=== PATIENT | female | born 1995 | race American Indian/Alaskan Native ===

== ENCOUNTER 2016-03-31 18:26 | Emergency (ER) | payer MEDICAID ==
--- NOTE | 2016-03-31 19:59 | Emergency Department Report ---
Chief Complaint: Vaginal Bleeding Stated Complaint: VAG BLOOD CLOTTING Time Seen by Provider: 03/31/16 19:57 - HPI History of Present Illness: Patient here complaining of lower abdominal pain and brown vaginal discharge times one week. Patient reports that she saw her blood clot came. She says she has an appointment set up to see [facility]. Patient reports that abdominal pain is 9 out of 10. She reports that she is 7 weeks and 3 days . Denies any urinary burning frequency or urgency. Denies any fever or chills. - ROS Review of Systems: All systems are negative unless stated in HPI above. - Exam Vital Signs: Vital Signs 03/31/16 18:34 Temperature 99.0 F Pulse Rate 65 Respiratory 18 Rate Blood Pressure 129/71 O2 Sat by Pulse 100 Oximetry Physical Exam: General: This is a 21-year-old female well-nourished well-developed in no acute distress Abdomen: Mild tenderness to palpate the pelvic area. No guarding or rebound tenderness and positive bowel sounds. CV: S1, S2. Regular rate and rhythm MSE screening note: Focused history and physical exam performed. Due to findings the following was ordered:see mdm ED Medical Decision Making - Medical Decision Making Medical decision making: Patient seen by provider in triage area. Appropriate protocol activated and patient to main ED to be seen by physician. ED Disposition for MSE Condition: Stable
[2016-03-31 21:10] LABS: Basophils % (Auto) 0.3 % (0.0-1.8); Eosinophils % (Auto) 1.7 % (0.0-4.3); Hematocrit 37.4 % (30.3-42.9); Hemoglobin 11.8 gm/dl (10.1-14.3); Mean Corpuscular HGB Conc 32 % (30-34); Mean Corpuscular Hemoglobin 27 pg (28-32); Mean Corpuscular Volume 86 fl (79-97); Platelet Count 283 K/mm3 (140-440); Red Blood Count 4.36 M/mm3 (3.65-5.03); Red Cell Distribution Width 17.7 % (13.2-15.2); White Blood Count 10.8 K/mm3 (4.5-11.0)
[2016-03-31 22:58] LABS: Bilirubin,Urine NEG (Negative); Blood,Urine LG (Negative); Ketones,Urine NEG (Negative); Leukocyte Esterase,Urine TR (Negative); Mucus,Urine FEW /HPF; Nitrite,Urine NEG (Negative); Protein,Urine <15 mg/dL mg/dL (Negative); Urobilinogen,Urine < 2.0 mg/dL (<2.0)
--- NOTE | 2016-04-01 00:11 | Ultrasound Report ---
FINAL REPORT PROCEDURE: First trimester obstetric ultrasound. TECHNIQUE: Real-time transabdominal and transvaginal sonography of the uterus, placenta, amniotic fluid, adnexa, and fetus was performed with image documentation. Measurements were obtained to determine age/size. M-mode Doppler was used to document heartbeat. CPT 07469 and 46609 HISTORY: . Bleeding and abdominal pain. COMPARISON: No prior studies are available for comparison. FINDINGS: LMP: 02/09/2016. Gestational age (LMP): 7 weeks 2 days. EDC: 11/15/2016. CRL: No pole identified. Yolk Sac: Slightly enlarged. 5.2 millimeters. Embryonic Cardiac Activity: No cardiac activity detected. Gestational Sac: 3 x 3 x 3 millimeter subchorionic bleed. Mean sac diameter 11.7 millimeters, 6 weeks 0 days. Amniotic fluid: Normal. Cervix: Normal. Right Ovary: 3.1 x 1.7 x 2.9 centimeters. 1.5 centimeter complex lesion. Normal flow. Left Ovary: 1.9 x 1.6 x 1.7 centimeters. Normal flow. Uterus: 8.1 x 4.2 x 4.5 centimeters. EDC: 11/24/2016. IMPRESSION: Possible small intrauterine gestational sac. Yolk sac appears mildly enlarged. No pole or cardiac activity detected at this time. By measurements of mean sac diameter 6 weeks 0 days with EDC of 11/24/2016. Consider this could be a very early intrauterine gestation before pole and cardiac activity detected. Small subchorionic bleed. Complex right ovarian/adnexal lesion likely complex cyst. Without definite intrauterine , although unlikely difficult to completely exclude ectopic. Consider clinical correlation, correlation with beta HCG, and short-term followup ultrasound.
--- NOTE | 2016-04-01 03:34 | Emergency Department Report ---
ED Female HPI - General Chief complaint: Vaginal Bleeding Stated complaint: VAG BLOOD CLOTTING Time Seen by Provider: 03/31/16 19:57 Source: patient, RN notes reviewed Mode of arrival: Ambulatory Limitations: No Limitations - History of Present Illness Initial comments: This is a 21-year-old female, previously unknown to me. She is 1, para 0. Last menstrual period is February 08. She is going to be following at [facility] [employer]. She has not followed up thus far. The patient presents to the ER with vaginal bleeding. The patient reported that at 6:00 PM yesterday, she was going to the bathroom, passed some tissue. She has had mild vaginal spotting and vaginal cramping. No nausea or vomiting. No chest pain or shortness of breath. No irritative or obstructive urinary symptoms. Symptoms have no exacerbating or relieving factors. cramping does not radiate anywhere. MD Complaint: vaginal bleeding, pelvic pain -: Sudden Location: suprapubic Severity: mild Quality: cramping Consistency: intermittent Improves with: none Worsens with: none Associated Symptoms: vaginal bleeding. denies: vaginal discharge, abdominal pain, nausea/vomiting, fever/chills, headaches, loss of appetite, dysuria, shortness of breath, syncope, weakness - Related Data Sexually active: Yes Allergies Allergy/AdvReac Type Severity Reaction Status Date / Time No Known Allergies Allergy Unverified 03/31/16 18:34 ED Review of Systems ROS: Stated complaint: VAG BLOOD CLOTTING Other details as noted in HPI Constitutional: denies: fever, malaise Eyes: denies: vision change ENT: denies: epistaxis Respiratory: denies: cough Cardiovascular: denies: chest pain Gastrointestinal: denies: nausea, vomiting Genitourinary: abnormal menses Musculoskeletal: denies: back pain, joint swelling, arthralgia Skin: denies: lesions Neurological: denies: headache, weakness, paresthesias Psychiatric: denies: anxiety, depression ED Physical Exam - General Limitations: No Limitations General appearance: alert, in no apparent distress - Head Head exam: Present: atraumatic, normocephalic - Eye Eye exam: Present: normal appearance, EOMI. Absent: nystagmus - ENT ENT exam: Present: normal exam, normal orophraynx, mucous membranes moist, normal external ear exam - Neck Neck exam: Present: normal inspection, full ROM. Absent: tenderness, meningismus - Respiratory Respiratory exam: Present: normal lung sounds bilaterally. Absent: respiratory distress, wheezes, rales, rhonchi, stridor, decreased breath sounds - Cardiovascular Cardiovascular Exam: Present: regular rate, normal rhythm, normal heart sounds. Absent: bradycardia, tachycardia, irregular rhythm, systolic murmur, diastolic murmur, rubs, gallop - GI/Abdominal GI/Abdominal exam: Present: soft, normal bowel sounds. Absent: distended, tenderness, guarding, rebound, rigid, pulsatile mass - External exam: Present: normal external exam Speculum exam: Present: normal speculum exam, vaginal bleeding Bi-manual exam: Present: normal bi-manual exam, other (escorted by nurse HOSSEIN ROSALES during the gynecologic examination). Absent: cervical motion tendernes, adnexal tenderness, adnexal mass - Extremities Exam Extremities exam: Present: normal inspection, full ROM, normal capillary refill. Absent: tenderness, pedal edema, joint swelling, calf tenderness, other - Back Exam Back exam: Present: normal inspection - Neurological Exam Neurological exam: Present: alert, oriented X3, normal gait, other (Extraocular movements intact. Tongue midline. No facial droop. Facial sensation intact to light touch in the V1, V2, V3 distribution bilaterally. 5 and 5 strength in 4 extremities.. Sensation is intact to light touch in 4 extremities.). Absent : motor sensory deficit - Psychiatric Psychiatric exam: Present: normal affect, normal mood - Skin Skin exam: Present: warm, dry, intact, normal color. Absent: rash ED Course Vital Signs 03/31/16 04/01/16 04/01/16 18:34 :17 03:49 Temperature 99.0 F 98.4 F Pulse Rate 65 74 Respiratory 18 14 18 Rate Blood Pressure 129/71 Blood Pressure 126/90 [Right] O2 Sat by Pulse 100 100 99 Oximetry 04/01/16 03:58 Temperature 98.4 F Pulse Rate 89 Respiratory 16 Rate Blood Pressure Blood Pressure 111/69 [Right] O2 Sat by Pulse 98 Oximetry - Reevaluation(s) Reevaluation #1: 04/01/16 04:22 Differential diagnosis: Miscarriage, ectopic , threatened miscarriage Assessment and plan: 21-year-old female with vaginal bleeding, positive quantitative hCG, report of passing probable tissue prior to arrival at the ER. She is afebrile with reassuring vital signs, and has a benign gynecologic examination. A transvaginal ultrasound demonstrates a slightly enlarged yolk sac, with no cardiac activity, a small subchorionic bleed, bilateral normal ovaries. The radiologist felt that the patient most likely had a small intrauterine gestational sac with a yolk sac appeared mildly enlarged. No cardiac activity was noted. I highly suspect that the patient is having a miscarriage. She is afebrile with reassuring vital signs, and clinically appears very well looking. She is instructed to avoid heavy lifting, avoid strenuous physical activity, and to return in 48 hours for repeat quantitative hCG. Return precautions are extensively reviewed. ED Medical Decision Making - Lab Data Result diagrams: 03/31/16 20:48 Vital Signs 03/31/16 04/01/16 04/01/16 18:34 : 03:49 Temperature 99.0 F 98.4 F Pulse Rate 65 74 Respiratory 18 14 18 Rate Blood Pressure 129/71 Blood Pressure 126/90 [Right] O2 Sat by Pulse 100 100 99 Oximetry 04/01/16 03:58 Temperature 98.4 F Pulse Rate 89 Respiratory 16 Rate Blood Pressure Blood Pressure 111/69 [Right] O2 Sat by Pulse 98 Oximetry Lab Results 03/31/16 03/31/16 03/31/16 Range/Units 20:48 20:48 20:48 WBC 10.8 (4.5-11.0) K/mm3 RBC 4.36 (3.65-5.03) M/mm3 Hgb 11.8 (10.1-14.3) gm/dl Hct 37.4 (30.3-42.9) % MCV 86 (79-97) fl MCH 27 L (28-32) pg MCHC 32 (30-34) % RDW 17.7 H (13.2-15.2) % Plt Count 283 (140-440) K/mm3 Lymph % (Auto) 28.0 (13.4-35.0) % [place] % (Auto) 7.6 H (0.0-7.3) % Eos % (Auto) 1.7 (0.0-4.3) % Baso % (Auto) 0.3 (0.0-1.8) % Lymph # 3.0 (1.2-5.4) K/mm3 [place] # 0.8 (0.0-0.8) K/mm3 Eos # 0.2 (0.0-0.4) K/mm3 Baso # 0.0 (0.0-0.1) K/mm3 Seg Neutrophils % 62.4 (40.0-70.0) % Seg Neutrophils # 6.7 (1.8-7.7) K/mm3 HCG, Quant 4767 H (0-4) mIU/mL Urine Color (Yellow) Urine Turbidity (Clear) Urine pH (5.0-7.0) Ur Specific [place] (1.003-1.030) Urine Protein (Negative) mg/dL Urine Glucose (UA) (Negative) mg/dL Urine Ketones (Negative) mg/dL Urine Blood (Negative) Urine Nitrite (Negative) Urine Bilirubin (Negative) Urine Urobilinogen (<2.0) mg/dL Ur Leukocyte Esterase (Negative) Urine WBC (Auto) (0.0-6.0) /HPF Urine RBC (Auto) (0.0-6.0) /HPF U Epithel Cells (Auto) (0-13.0) /HPF Urine Mucus /HPF Blood Type A POSITIVE Antibody Screen Negative 03/31/16 Range/Units 21:55 WBC (4.5-11.0) K/mm3 RBC (3.65-5.03) M/mm3 Hgb (10.1-14.3) gm/dl Hct (30.3-42.9) % MCV (79-97) fl MCH (28-32) pg MCHC (30-34) % RDW (13.2-15.2) % Plt Count (140-440) K/mm3 Lymph % (Auto) (13.4-35.0) % [place] % (Auto) (0.0-7.3) % Eos % (Auto) (0.0-4.3) % Baso % (Auto) (0.0-1.8) % Lymph # (1.2-5.4) K/mm3 [place] # (0.0-0.8) K/mm3 Eos # (0.0-0.4) K/mm3 Baso # (0.0-0.1) K/mm3 Seg Neutrophils % (40.0-70.0) % Seg Neutrophils # (1.8-7.7) K/mm3 HCG, Quant (0-4) mIU/mL Urine Color Yellow (Yellow) Urine Turbidity Clear (Clear) Urine pH 7.0 (5.0-7.0) Ur Specific [place] 1.023 (1.003-1.030) Urine Protein <15 mg/dl (Negative) mg/dL Urine Glucose (UA) Neg (Negative) mg/dL Urine Ketones Neg (Negative) mg/dL Urine Blood Lg (Negative) Urine Nitrite Neg (Negative) Urine Bilirubin Neg (Negative) Urine Urobilinogen < 2.0 (<2.0) mg/dL Ur Leukocyte Esterase Tr (Negative) Urine WBC (Auto) 5.0 (0.0-6.0) /HPF Urine RBC (Auto) 4.0 (0.0-6.0) /HPF U Epithel Cells (Auto) 3.0 (0-13.0) /HPF Urine Mucus Few /HPF Blood Type Antibody Screen - Radiology Data Radiology results: report reviewed, image reviewed Transvaginal ultrasound demonstrates small subchorionic hemorrhage. There is a possible small intrauterine gestational sac. A yolk sac appears to be mildly enlarged. There is no pole or cardiac activity. Complex right ovarian/ adnexal lesion is likely a complex cyst. Critical care attestation.: If time is entered above; I have spent that time in minutes in the direct care of this critically ill patient, excluding procedure time. ED Disposition Clinical Impression: Miscarriage Disposition: DISCHARGED TO HOME OR SELFCARE Is pt being admited?: No Does the pt Need Aspirin: No Condition: Stable Instructions: Spontaneous Miscarriage (ED) Additional Instructions: Laboratory studies were unremarkable. Symptoms most likely coming from miscarriage. However, early outside the uterus (ectopic ) is not definitively excluded. Therefore, return in 2 days for repeat physical examination and blood test. Alternatively, you may follow-up with your private [employer] doctor for this. Rest and avoid heavy lifting, avoid strenuous physical activity, and avoid sexual activity until cleared by an OB/ [employer] doctor. Return to the ER right away with new pain, worsened pain, migration of pain, fevers or chills, intractable nausea or vomiting, inability to tolerate liquid feeds. Referrals: PRIMARY CARE, [Primary Care Provider] - 3-5 Days JONNA BLANCO MD [Staff Physician] - 3-5 Days [facility] [employer] [Provider Group] - 3-5 Days
[2016-04-01 03:58] VITALS: BP 111/69
== END 2016-04-01 04:29 | disposition home or self-care (01) ==
LOC: ED 18:26
DX: O03.9 Complete or unspecified spontaneous abortion without complication (principal); Z3A.01 Less than 8 weeks gestation of pregnancy
CPT/HCPCS: 36415; 76801; 76817; 81001; 84702; 85025; 86850; 86900; 86901

== ENCOUNTER 2016-04-02 19:16 | Emergency (ER) | payer MEDICAID ==
[2016-04-02 19:29] VITALS: BP 146/82
--- NOTE | 2016-04-02 19:32 | Emergency Department Report ---
Addendum entered and electronically signed by NIKKIE OLIVAS NP 04/02/16 19:38 : Blank Doc - Documentation Documentation: G1, A0, P0 Original Note: Chief Complaint: Vaginal Bleeding Stated Complaint: ABD PAIN Time Seen by Provider: 04/02/16 19:30 - HPI History of Present Illness: Patient was seen and treated in the ED 03/31/16 for possible threatened miscarriage. She presents to the ED today with c/o worsening abdominal pain and vaginal bleeding. She has used two pads today. LMP 02/08/17 - ROS Review of Systems: all other systems are unremarkable except for documentation in HPI - Exam Vital Signs: Vital Signs 04/02/16 19:24 Temperature 98 F Pulse Rate 107 H Respiratory 18 Rate Blood Pressure 146/82 O2 Sat by Pulse 100 Oximetry Physical Exam: Gen: well developed and nourished, NAD, uncomfortable Abd: soft, non-distended, bowel sounds present, tender to palpation suprapubic, RLQ and LLQ, no guarding, rigid or rebound MSE screening note: Focused history and physical exam performed. Due to findings the following was ordered: laboratory studies ordered
[2016-04-02 20:04] LABS: Basophils % (Auto) 0.4 % (0.0-1.8); Eosinophils % (Auto) 1.8 % (0.0-4.3); Hematocrit 36.3 % (30.3-42.9); Hemoglobin 11.8 gm/dl (10.1-14.3); Mean Corpuscular HGB Conc 33 % (30-34); Mean Corpuscular Hemoglobin 28 pg (28-32); Mean Corpuscular Volume 86 fl (79-97); Platelet Count 288 K/mm3 (140-440); Red Blood Count 4.23 M/mm3 (3.65-5.03)
[2016-04-02] MEDS ORDERED: TYLENOL PO ONE (20:07)
[2016-04-02 20:17] LABS: INR 1.01 (0.87-1.13)
[2016-04-02 20:18] LABS: Partial Thromboplastin Time 31.8 Sec. (24.2-36.6)
[2016-04-02] MEDS ORDERED: ZOFRAN ODT PO ONE ×3 (20:26→21:02)
--- NOTE | 2016-04-02 20:46 | Emergency Department Report ---
HPI - General Chief Complaint: Vaginal Bleeding Time Seen by Provider: 04/02/16 20:16 - HPI HPI: The patient is a 21-year-old female EGA 6 weeks, presents for evaluation of abdominal pain. The patient reports abdominal pain for the past one week, increased and constant for the past one day, currently 10 out of 10 in severity , crampy in quality. The patient reports associated nausea, and persistent mild in severity vaginal bleeding is well. The patient denies fever, chills, night sweats, diarrhea, blood in the stool, dark tarry stool, dysuria, hematuria , flank pain, genital discharge, inability to pass flatus. ED Past Medical Hx - Past Medical History Previous Medical History?: Yes - Surgical History Past Surgical History?: No - Social History Smoking Status: Current Every Day Smoker - Medications Home Medications: Home Medications Medication Instructions Recorded Confirmed Last Taken Type Ondansetron [Zofran TAB] 4 mg PO Q8HR PRN #14 tablet 04/02/16 Unknown Rx Oxycodone HCl/Acetaminophen 1 each PO Q6HR PRN #14 tablet 04/02/16 Unknown Rx [Percocet 7.5/325 mg] ED Review of Systems ROS: Stated complaint: ABD PAIN Other details as noted in HPI Constitutional: denies: fever ENT: denies: throat or neck pain Respiratory: denies: cough, shortness of breath Cardiovascular: denies: chest pain Endocrine: denies unexplained weight loss or gain Gastrointestinal: reports abdominal pain, nausea Genitourinary: denies: dysuria Musculoskeletal: denies: leg swelling Skin: denies: rash Neurological: denies: headache Hematological/Lymphatic: denies: easy bleeding or easy bruising Psych: denies sadness or hopelessness Physical Exam - Physical Exam Vital Signs: Vital Signs 04/02/16 04/02/16 19:24 20:23 Temperature 98 F Pulse Rate 107 H Respiratory 18 18 Rate Blood Pressure 146/82 O2 Sat by Pulse 100 Oximetry Physical Exam: General: well-nourished, well-developed, no acute distress Head: Normocephalic, atraumatic Eyes: normal sclera ENT: Mucous membranes are pale and dry Neck: trachea midline, neck supple, No neck stiffness, no cervical adenopathy Respiratory: Breath sounds equal bilaterally, no wheezing, rales, or rhonchi Cardio: S1 and S2 present, no murmurs, rubs, gallops, capillary refill is delayed Abdomen: Normoactive bowel sounds, soft abdomen, suprapubic and bilateral lower quadrant abdominal pain present, no rigidity, no guarding or rebound tenderness Musc: No pitting edema Skin: No rash Neuro: no facial drooping, normal speech Psych: Normal affect ED Course Vital Signs 04/02/16 04/02/16 19:24 20:23 Temperature 98 F Pulse Rate 107 H Respiratory 18 18 Rate Blood Pressure 146/82 O2 Sat by Pulse 100 Oximetry ED Medical Decision Making - Lab Data Result diagrams: 04/02/16 19:44 - Medical Decision Making The patient was seen and examined by myself. The patient is placed on a cable operator and continuous pulse ox. On initial evaluation, the patient was found to be in no distress. Evaluation orders were placed. The patient is given an IM dose of morphine for pain. She is given a tablet of Zofran. Lab results reveal Rh+ RhoGAM screen, and elevated hCG of 3000, decreased from hCG of 4000 obtained during evaluation here 2 days ago. Previous ultrasound of the pelvis revealed intrauterine gestational sac a subchorionic hemorrhage, and was negative for cardiac activity. Evaluation findings are suggestive of likely miscarriage. The patient was reevaluated and reported that their symptoms were markedly improved. The patient is stable for discharge with outpatient follow-up. The patient is given follow-up and return instructions. The patient expressed understanding and agreed with the plan. The patient is discharged in stable condition. Critical care attestation.: If time is entered above; I have spent that time in minutes in the direct care of this critically ill patient, excluding procedure time. ED Disposition Clinical Impression: Threatened miscarriage in early , Acute bilateral lower abdominal pain Disposition: DISCHARGED TO HOME OR SELFCARE Is pt being admited?: No Does the pt Need Aspirin: No Condition: Stable Instructions: Threatened Miscarriage (ED) Additional Instructions: Your ultrasound was unable to identify a normal intrauterine , and also was not able to rule out an ectopic . Make sure to follow-up with your [facility] within the next 48 hours for repeat B-HCG testing and trending. Your beta hCG level should double in 2 days if your is progressing as normal. You could have an ectopic and you must immediately present to an emergency department should you develop worsening of your symptoms or severe pain, vaginal bleeding, lightheadedness, passing out, confusion, or fever. Referrals: [facility] [Provider Group] - 3-5 Days Time of Disposition: 20:30
[2016-04-02] MEDS ORDERED: MORPHINE IM ONE (21:02)
== END 2016-04-02 22:26 | disposition home or self-care (01) ==
LOC: ED 19:16
DX: O20.0 Threatened abortion (principal); Z3A.01 Less than 8 weeks gestation of pregnancy; F17.200 Nicotine dependence, unspecified, uncomplicated
CPT/HCPCS: 36415; 84702; 85025; 85610; 85730; 96372; 99284; J2270; Q0162

== ENCOUNTER 2017-01-26 18:15 | Outpatient (CLI) | payer MEDICAID ==
[2017-01-26 22:31] VITALS: BP 116/62
== END 2017-01-26 22:50 | disposition home or self-care (01) ==
LOC: TRG 18:15
PROVIDERS: ATTEND Obstetrics & Gynecology
DX: O99.333 Smoking (tobacco) complicating pregnancy, third trimester (principal); Z3A.38 38 weeks gestation of pregnancy
CPT/HCPCS: 59025

== ENCOUNTER 2017-02-04 14:10 | Outpatient (CLI) | payer MEDICAID ==
[2017-02-04 17:58] VITALS: BP 125/73
[2017-02-04 19:45] LABS: Urine Drugs of Abuse Note Disclamer
--- NOTE | 2017-02-05 09:51 | Ultrasound Report ---
History: Decreased movement. Findings: Gestation: Single Position: Cephalic Amniotic Fluid: SARAH = 8.5 cm Heart Rate: 137 BPM BIOPHYSICAL PROFILE: 2 - breathing movements 0 - movements 2 - posture and tone 2 - Qualitative amniotic fluid volume 6 - TOTAL SCORE OF POSSIBLE 8 Heart Rate (bpm) 135
== END 2017-02-04 18:50 | disposition home or self-care (01) ==
LOC: TRG 14:10 → LD 16:39 → TRG 18:50
PROVIDERS: ATTEND Obstetrics & Gynecology
DX: O36.8130 Decreased fetal movements, third trimester, not applicable or unspecified (principal); O47.1 False labor at or after 37 completed weeks of gestation; Z87.891 Personal history of nicotine dependence; Z3A.39 39 weeks gestation of pregnancy
CPT/HCPCS: 59025; 76815; 76819; 80307